=== PATIENT | female | born 1955 | race American Indian/Alaskan Native ===

== ENCOUNTER 2016-11-07 13:34 | Emergency (ER) | payer BC ==
[2016-11-07 15:15] LABS: Anion Gap 20 mmol/L; BUN/Creatinine Ratio 11.11; Blood Urea Nitrogen 10 mg/dL (7-17); Calcium 9.9 mg/dL (8.4-10.2); Carbon Dioxide 28 mmol/L (22-30); Chloride 94.3 mmol/L (98-107); Glucose 103 mg/dL (65-100); Potassium 4.1 mmol/L (3.6-5.0); Sodium 138 mmol/L (137-145)
--- NOTE | 2016-11-07 15:18 | Cat Scan Report ---
FINAL REPORT PROCEDURE: CT HEAD/BRAIN WO CON TECHNIQUE: Computerized tomography of the head was performed without contrast material. HISTORY: c/o headache pain with severe HTN COMPARISON: None FINDINGS: Brain volume is age appropriate. There is subtle periventricular small vessel disease. There is no intra or extra-axial hemorrhage. There is no infarction. There is no mass effect or hydrocephalus. The skull base and calvarium are intact. There is septal thickening of the ethmoidal sinuses with superimposed chronic right ethmoidal sinusitis. Acute superimposed upon chronic left worse than right maxillary and right sphenoidal sinusitis is seen. Partial opacification of the right mastoid air cells and middle ear is present. IMPRESSION: No CT evident acute intracranial process. Acute superimposed upon chronic sinusitis. Right otomastoiditis
[2016-11-07] MEDS ORDERED: AUGMENTIN 875 MG PO ONE (15:21)
[2016-11-07] MEDS ORDERED: MOTRIN PO ONE (15:21)
[2016-11-07 15:33] LABS: Eosinophils % (Auto) 1.8 % (0.0-4.3); Hematocrit 41.8 % (30.3-42.9); Hemoglobin 14.3 gm/dl (10.1-14.3); Mean Corpuscular HGB Conc 34 % (30-34); Mean Corpuscular Hemoglobin 30 pg (28-32); Mean Corpuscular Volume 89 fl (79-97); Platelet Count 456 K/mm3 (140-440); Red Cell Distribution Width 12.7 % (13.2-15.2)
--- NOTE | 2016-11-07 15:34 | Emergency Department Report ---
HPI - General Chief Complaint: Headache Time Seen by Provider: 11/07/16 15:04 - HPI HPI: The patient is 61-year-old female who presents for evaluation of right ear pain and head pain. She states that she has experienced pain for the past 5 days, constant since onset, progressive, pressure-like in quality, moderate in severity, exacerbated with head position changes. The patient denies fever, head injury, headache, neck pain, neck stiffness, vision or hearing changes, smell or taste changes, paresthesias, facial drooping, slurred speech, seizure- like activity, or other focal neurological deficit. ED Past Medical Hx - Past Medical History Previous Medical History?: Yes Hx Hypertension: Yes - Surgical History Past Surgical History?: No - Social History Smoking Status: Never Smoker Substance Use Type: Alcohol, Prescribed - Medications Home Medications: Home Medications Medication Instructions Recorded Confirmed Last Taken Type Acetaminophen/Codeine [Tylenol 1 tab PO Q6H PRN #10 tab 11/07/16 Unknown Rx /Codeine # 3 tab] Amoxicillin 500 mg PO TID #30 capsule 11/07/16 Unknown Rx Atenolol [Atenolol] 1 tab PO DAILY 11/07/16 11/07/16 11/07/16 History AtorvaSTATin 20 mg PO DAILY 11/07/16 11/07/16 Unknown History Hydrochlorothiazide 1 tab PO DAILY 11/07/16 11/07/16 11/06/16 History [Hydrochlorothiazide] ED Review of Systems ROS: Stated complaint: RIGHT SIDE CONGESTION Other details as noted in HPI Constitutional: denies: fever ENT: reports ear pain denies: throat or neck pain Respiratory: denies: cough, shortness of breath Cardiovascular: denies: chest pain Endocrine: denies unexplained weight loss or gain Gastrointestinal: denies: abdominal pain, nausea Genitourinary: denies: dysuria Musculoskeletal: denies: leg swelling Skin: denies: rash Neurological: denies: headache Hematological/Lymphatic: denies: easy bleeding or easy bruising Psych: denies sadness or hopelessness Physical Exam - Physical Exam Vital Signs: Vital Signs 11/07/16 13:40 Temperature 98.5 F Pulse Rate 73 Respiratory 20 Rate Blood Pressure 190/106 O2 Sat by Pulse 99 Oximetry Physical Exam: General: well-nourished, well-developed, no acute distress Head: Normocephalic, atraumatic Eyes: normal sclera ENT: Right tympanic membrane erythematous, no middle ear effusion or bulging, no middle ear debris or effusion, no mastoid redness or tenderness, Mucous membranes are pink and moist Neck: trachea midline, neck supple, No neck stiffness, no cervical adenopathy Respiratory: Breath sounds equal bilaterally, no wheezing, rales, or rhonchi Cardio: S1 and S2 present, no murmurs, rubs, gallops, capillary refill is brisk Abdomen: Normoactive bowel sounds, soft abdomen, no rigidity, no guarding or rebound tenderness Musc: No pitting edema Skin: No rash Neuro: no facial drooping, CN2-12 grossly intact, normal speech Psych: Normal affect ED Course Vital Signs 11/07/16 13:40 Temperature 98.5 F Pulse Rate 73 Respiratory 20 Rate Blood Pressure 190/106 O2 Sat by Pulse 99 Oximetry ED Medical Decision Making - Lab Data Result diagrams: 11/07/16 14:41 - Medical Decision Making The patient's and examined by myself. Examined his final are consistent with acute right otitis media. The patient is given a tablet of Augmentin for treatment of otitis media and a tablet of Tylenol for treatment of her pain. The patient was reevaluated and reported that their symptoms were markedly improved. The patient is stable for discharge with outpatient follow-up. The patient is given follow-up and return instructions. The patient expressed understanding and agreed with the plan. The patient is discharged in stable condition with a prescription for antibiotic and pain medicine. Critical care attestation.: If time is entered above; I have spent that time in minutes in the direct care of this critically ill patient, excluding procedure time. ED Disposition Clinical Impression: Otitis media, acute nonsuppurative Qualifiers: Laterality: right Qualified Code(s): H65.191 - Other acute nonsuppurative otitis media, right ear Acute nonintractable headache Qualifiers: Headache type: unspecified Qualified Code(s): R51 - Headache Disposition: DISCHARGED TO HOME OR SELFCARE Is pt being admited?: No Does the pt Need Aspirin: No Condition: Stable Instructions: Otitis Media (ED) Prescriptions: Acetaminophen/Codeine [Tylenol /Codeine # 3 tab] 1 tab PO Q6H PRN #10 tab PRN Reason: Pain Amoxicillin 500 mg PO TID #30 capsule Referrals: PRIMARY CARE, [Primary Care Provider] - 3-5 Days Time of Disposition: 15:34
[2016-11-07 15:47] VITALS: BP 141/72
== END 2016-11-07 15:52 | disposition home or self-care (01) ==
LOC: ED 13:34
DX: H65.191 Other acute nonsuppurative otitis media, right ear (principal); R51 Headache; I10 Essential (primary) hypertension
CPT/HCPCS: 36415; 70450; 80048; 84484; 85025; 85610; 85670; 85730; 93005; 93010; 99285

== ENCOUNTER 2017-06-10 09:32 | Outpatient (CLI) | payer BC ==
--- NOTE | 2017-06-11 12:12 | Mammography Report ---
BILATERAL DIGITAL SCREENING MAMMOGRAM with CAD: 06/10/17 09:32:00 CLINICAL: Routine screening. COMPARISON:06/04/16 and 06/04/15 FINDINGS: There are scattered areas of fibroglandular density.Right asymmetries are unchanged compared to prior exams. No mass, architectural distortion or suspicious calcifications. IMPRESSION: No mammographic evidence of malignancy. BI-RADS CATEGORY: 2 -- Benign RECOMMENDATION: Routine mammographic screening in one year. COMMENT: Patient follow-up letters are generated by our [employer] application.
== END 2017-06-10 09:33 | disposition home or self-care (01) ==
LOC: MAMMO 09:32
PROVIDERS: ATTEND Obstetrics & Gynecology
DX: Z12.31 Encounter for screening mammogram for malignant neoplasm of breast (principal); I10 Essential (primary) hypertension
CPT/HCPCS: 77067; G0202

== ENCOUNTER 2019-06-15 07:45 | Outpatient (CLI) | payer BC ==
--- NOTE | 2019-06-15 09:27 | Mammography Report ---
DIGITAL SCREENING MAMMOGRAM WITH CAD, 06/15/2019 INDICATION: Routine screening mammography. TECHNIQUE: Digital bilateral 2D mammography was obtained in the craniocaudal and mediolateral obliq ue projections. This examination was interpreted with the benefit of Computer-Aided Detection analysi s. COMPARISON: 06/12/2018 FINDINGS: Breast Density: The breasts are almost entirely fatty. There is no evidence of dominant mass, suspicious calcifications or architectural distortion in eithe r breast. IMPRESSION: No mammographic evidence of malignancy. Follow up recommendation: Routine yearly BI-RADS Category 2: Benign. A "normal" or negative report should not discourage follow up or biopsy of a clinically significant f inding. A written summary of these findings will be mailed to the patient. The patient will be entered into a mammography reporting system which will generate a reminder letter for the patient's next appointmen t at the appropriate interval. The [employer] recommends yearly mammograms starting at age 40 and continuing as l [place] as a woman is in good health. Breast MRI is recommended for women with an approximate 20-25% or greater lifetime risk of breast cancer, including women with a strong family history of breast or ova holley cancer or who have been treated for Hodgkin's disease. Signer Name: Javon Pederson MD Signed: 06/15/2019 9:22 AM Workstation Name: [id number]
== END 2019-06-15 07:46 | disposition home or self-care (01) ==
LOC: MAMMO 07:45
PROVIDERS: ATTEND Obstetrics & Gynecology
DX: Z12.31 Encounter for screening mammogram for malignant neoplasm of breast (principal)
CPT/HCPCS: 77067

== ENCOUNTER 2020-06-16 09:51 | Outpatient (CLI) | payer BC ==
--- NOTE | 2020-06-16 11:27 | Mammography Report ---
DIGITAL SCREENING MAMMOGRAM WITH CAD, 06/16/2020 INDICATION: Routine screening mammography. TECHNIQUE: Digital bilateral 2D mammography was obtained in the craniocaudal and mediolateral obliq ue projections. This examination was interpreted with the benefit of Computer-Aided Detection analysi s. COMPARISON: 06/15/2019. 06/12/2018. FINDINGS: Breast Density: The breasts are almost entirely fatty. There is no evidence of dominant mass, suspicious calcifications or architectural distortion in eithe r breast. Stable right-sided nodularity. IMPRESSION: Follow up recommendation: Routine yearly BI-RADS Category 2: Benign. A "normal" or negative report should not discourage follow up or biopsy of a clinically significant f inding. A written summary of these findings will be mailed to the patient. The patient will be entered into a mammography reporting system which will generate a reminder letter for the patient's next appointmen t at the appropriate interval. The [employer] recommends yearly mammograms starting at age 40 and continuing as l [place] as a woman is in good health. Breast MRI is recommended for women with an approximate 20-25% or greater lifetime risk of breast cancer, including women with a strong family history of breast or ova holley cancer or who have been treated for Hodgkin's disease. Signer Name: Chadnler Martinez MD Signed: 06/16/2020 11:23 AM Workstation Name: [id number]
== END 2020-06-16 09:52 | disposition home or self-care (01) ==
LOC: MAMMO 09:51
PROVIDERS: ATTEND Obstetrics & Gynecology
DX: Z12.31 Encounter for screening mammogram for malignant neoplasm of breast (principal)
CPT/HCPCS: 77067

== ENCOUNTER 2021-06-17 13:59 | Outpatient (CLI) | payer MEDICARE ==
--- NOTE | 2021-06-17 15:36 | Mammography Report ---
DEXA BONE DENSITY SCAN INDICATION / CLINICAL INFORMATION: 627.2 N95.1. 66 years Female COMPARISON: None available. LUMBAR SPINE, L1-L4: - Bone mineral density (BMD) = 0.798 g/cm2. - T-score = -2.3 - Z-score = -1.2 Change (%) since most recent prior (if available): None available. LEFT HIP, TOTAL : - Bone mineral density (BMD) = 0.779 g/cm2. - T-score = -1.3 - Z-score = -0.6 Change (%) since most recent prior (if available): None available. IMPRESSION: 1. WHO Classification: Osteopenia. Fracture Risk: Increased. Note: 10-Year Fracture Risk (FRAX) 3.5% for major fracture and 0.3% for hip fracture. BMD Reporting Guidelines (ISCD, 2015) BMD Reporting in Postmenopausal Women and in Men Age 50 and Older - T-scores are preferred. - The WHO densitometric classification is applicable. BMD Reporting in Females Prior to Menopause and in Males Younger Than Age 50 - Z-scores, not T-scores, are preferred. This is particularly important in children. - A Z-score of -2.0 or lower is defined as below the expected range for age, and a Z-score above -2.0 is within the expected range for age. - Osteoporosis cannot be diagnosed in men under age 50 on the basis of BMD alone. - The WHO diagnostic criteria may be applied to women in the menopausal transition. http://www.iscd.org/official-positions/2578-wepp-xuznbtjv-positions-adult/ Signer Name: Pop Velazquez MD Signed: 06/17/2021 3:32 PM Workstation Name: [id number]
--- NOTE | 2021-06-18 09:43 | Mammography Report ---
DIGITAL SCREENING MAMMOGRAM WITH CAD, 06/17/2021 CLINICAL INFORMATION / INDICATION: Routine screening mammography. Z12.31 TECHNIQUE: Digital bilateral 2D mammography was obtained in the craniocaudal and mediolateral obliqu e projections. This examination was interpreted with the benefit of Computer-Aided Detection analysis . COMPARISON: 06/16/20, 06/15/19 FINDINGS: Breast Density: The breasts are almost entirely fatty. No dominant mass, suspicious calcifications, or architectural distortion in either breast. Right breast intramammary lymph node is unchanged. IMPRESSION: No mammographic evidence of malignancy. Follow up recommendation: Routine yearly BI-RADS Category 2: BENIGN. A "normal" or negative report should not discourage follow up or biopsy of a clinically significant f inding. A written summary of these findings will be mailed to the patient. The patient will be entered into a mammography reporting system which will generate a reminder letter for the patient's next appointmen t at the appropriate interval. The [employer] recommends yearly mammograms starting at age 40 and continuing as l [place] as a woman is in good health. Breast MRI is recommended for women with an approximate 20-25% or greater lifetime risk of breast cancer, including women with a strong family history of breast or ova holley cancer or who have been treated for Hodgkin's disease. Signer Name: Olivia Vidal MD Signed: 06/18/2021 9:39 AM Workstation Name: [id number]
== END 2021-06-17 14:00 | disposition home or self-care (01) ==
LOC: MAMMO 13:59
PROVIDERS: ATTEND Obstetrics & Gynecology
DX: Z12.31 Encounter for screening mammogram for malignant neoplasm of breast (principal); N95.1 Menopausal and female climacteric states; M85.88 Other specified disorders of bone density and structure, other site
CPT/HCPCS: 77067; 77080